=== PATIENT | male | born 1985 | race Caucasian/White ===

== ENCOUNTER 2017-07-22 11:19 | Emergency (ER) | payer OTHER ==
[~2017-07-22] VITALS: Ht 180.3 cm; Wt 87.1 kg
--- NOTE | 2017-07-22 12:13 | ED GI/GU/ABDOMINAL COMPLAINT ---
History of Present Illness General Chief Complaint: Nausea, Vomiting, Diarrhea Stated Complaint: BIBA N/V Source: patient, family Exam Limitations: no limitations Vital Signs & Intake/Output Vital Signs & Intake/Output ED Intake and Output 07/23 0000 07/22 1200 Intake Total Output Total Balance Patient 192 lb Weight Weight Reported by Patient Measurement Method Allergies Coded Allergies: NO KNOWN ALLERGIES (11/28/12) Reconcile Medications Hydroxyzine HCl (hydrOXYzine HCl) 10 MG TABLET 1 TAB PO DAILY PRN ANXIETY ( Reported) Melatonin 5 MG TABLET 1 TAB PO QPM SLEEP (Reported) Methadone HCl (Methadose) 10 MG/ML ORAL.CONC 120 MG PO DAILY MENTAL HEALTH ( Reported) Multiple Vitamin (Multivitamins) 1 EACH TABLET 1 TAB PO DAILY SUPPLEMENT ( Reported) Omeprazole 40 MG CAPSULE.DR 1 CAP PO DAILY GI (Reported) Ondansetron (Zofran Odt) 4 MG TAB.RAPDIS 1 TAB SL TID PRN nausea Polyethylene Glycol 3350 17 GRAM/DOSE POWDER 17 GM PO QHS GI (Reported) Sodium Fluoride (Denta 5000 Plus) 1.1 % CREAM..G. 1 TRENT PO QHS TEETH ( Reported) Triage Note: 32M BIBA FOR N/V SINCE THIS AM. ARRIVES LETHARGIC AND MOANING. SIG OTHER STATES HE WAS RECENTLY WORKED UP FOR A FATTY LIVER. HAS NOT GOTTEN HIS DOSE OF METHADONE TODAY. 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 AFEBRILE Triage Nurses Notes Reviewed? yes Onset: Abrupt Duration: hour(s): Timing: multiple episodes today Quality/Severity: moderate Location: generalized abdomen HPI: 32-year-old male with history of fatty liver disease presents to emergency department complaining of abrupt onset generalized abdominal pain beginning this morning when he woke up. Patient also with bilious vomiting total episodes this morning. Pain was described as severe, burning, patient requests his called 911. Patient medicated with Zofran en route to the hospital. Patient is on daily methadone, did not take his methadone today as he was vomiting. Patient currently under evaluation for fatty liver, had ultrasound done which showed fatty liver as well as rising liver enzymes. The patient denies fevers, chills, diarrhea, constipation, urinary symptoms. (Nataly HURD,Thalia Serrano) Past History Travel History Traveled to [place] past 21 day No Medical History Any Pertinent Medical History? see below for history Neurological: NONE EENT: NONE Cardiovascular: NONE Respiratory: NONE Gastrointestinal: NONE Hepatic: NONE Renal: NONE Musculoskeletal: NONE Psychiatric: opioid dependence Endocrine: NONE Blood Disorders: NONE Tetanus Vaccine: 11/28/12 Surgical History Surgical History: non-contributory Psychosocial History What is your primary language Maori Tobacco Use: Refused to answer Family History Hx Contributory? No (Thalia Louie) Review of Systems Review of Systems Constitutional: Reports: no symptoms. EENTM: Reports: no symptoms. Respiratory: Reports: no symptoms. Cardiovascular: Reports: no symptoms. GI: Reports: see HPI. Genitourinary: Reports: no symptoms. Musculoskeletal: Reports: no symptoms. Skin: Reports: no symptoms. Neurological/Psychological: Reports: no symptoms. Hematologic/Endocrine: Reports: no symptoms. Immunologic/Allergic: Reports: no symptoms. All Other Systems: Reviewed and Negative (Thalai Louie) Physical Exam Physical Exam General Appearance: well developed/nourished, alert, awake, mild distress Head: atraumatic, normal appearance Eyes: Bilateral: normal appearance. Ears, Nose, Throat, Mouth: hearing grossly normal Neck: normal inspection, supple, full range of motion Respiratory: normal breath sounds, no respiratory distress, lungs clear Cardiovascular: regular rate/rhythm Gastrointestinal: mild abdominal distention, tenderness with gaurding through out abdominal exam, no organomegaly Back: normal inspection, normal range of motion Extremities: normal range of motion Neurologic/Psych: awake, alert, oriented x 3 Skin: intact, normal color, warm/dry Core Measures ACS in differential dx? No Sepsis Present: No Sepsis Focused Exam Completed? No (Thalia Louie) Progress Differential Diagnosis: appendicitis, biliary colic, bowel obstruction, colon cancer, cholecystitis, diverticulitis, gastritis, hepatitis, hernia, inflamm bowel dis, pancreatitis, peptic ulcer, PUD/GERD, perforated viscous, SBO Plan of Care: Orders Procedure Date/time Status LACTIC ACID 07/22 1434 Active LIPASE 07/22 1134 Complete LACTIC ACID 07/22 1134 Complete COMPREHENSIVE METABOLIC PANEL 07/22 1134 Complete CBC WITHOUT DIFFERENTIAL 07/22 1134 Complete AMYLASE 07/22 1134 Complete Laboratory Tests 07/22/17 1202: Anion Gap 19 H, Estimated GFR > 60, BUN/Creatinine Ratio 24.4, Glucose 125 H, Lactic Acid 2.5 H, Calcium 9.9, Total Bilirubin 0.3, AST 155 H, ALT 312 H, Alkaline Phosphatase 87, Total Protein 7.9, Albumin 5.0, Globulin 2.9, Albumin/ Globulin Ratio 1.7, Amylase 74, Lipase 424 H, CBC w Diff NO MAN DIFF REQ, RBC 6.10, MCV 79.6 L, MCH 25.8 L, RDW 14.4, MPV 9.5, Gran % 87.7 H, Lymphocytes % 8.1 L, Monocytes % 3.1, Eosinophils % 0.5, Basophils % 0.6, Absolute Granulocytes 10.0 H, Absolute Lymphocytes 0.9 L, Absolute Monocytes 0.3, Absolute Eosinophils 0.1, Absolute Basophils 0.1, PUBS MCHC 32.[address] scan reveals fatty liver without other acute abnormality. Patient's labs show elevated liver enzymes, no acute change compared to prior studies. Patient feels improved abdominal pain following IV medications here in the emergency department. He appears comfortable now, no acute distress, sitting comfortably in bed. Patient is tolerating PO area and patient given a referral for a veterinarian epidemiologist to follow-up with regarding his fatty liver. The patient agrees with the plan of care. The patient was discussed with Dr. Marrufo who agrees with this plan. Diagnostic Imaging: Viewed by Me: CT Scan. Discussed w/RAD: CT Scan. Radiology Impression: PATIENT: VANGIE HUGHES PRESENT AGE: 32 PATIENT ACCOUNT NO: [id number] : 85 LOCATION: [facility] ORDERING PHYSICIAN: Thalia HURD SERVICE DATE: 07/22/17 EXAM TYPE: CAT - CT ABD & PELVIS W IV CONTRAST EXAMINATION: CT ABDOMEN AND PELVIS WITH CONTRAST CLINICAL INFORMATION: 32-year-old male presented with severe generalized abdominal pain, nausea and vomiting. History of fatty liver. COMPARISON: Abdominal ultrasound done on 06/13/2017, CT of the chest, abdomen, and pelvis done on 03/15/2017 (at [facility]), and remote CT of the abdomen and pelvis done on 09/12/2011. TECHNIQUE: Multidetector volumetric imaging was performed of the abdomen and pelvis following IV administration of 90 mL of Optiray 320 intravenous contrast. Sagittal and coronal reformatted images were obtained on the technologist's workstation. DLP: 546.61 mGy-cm FINDINGS: LUNG BASES: The visualized lung bases are unremarkable. LIVER, GALLBLADDER, AND BILIARY TREE: Diffuse hepatic steatosis is present without any superimposed discrete focal abnormalities. The portal, hepatic veins are patent. The gallbladder is unremarkable with no evidence of radiopaque gallstones, gallbladder wall thickening, or obvious pericholecystic inflammatory changes. PANCREAS: Unremarkable. SPLEEN: Unremarkable. ADRENAL GLANDS: Unremarkable. KIDNEYS AND URETERS: The kidneys are normal in size, shape, and attenuation. No hydronephrosis, hydroureter, or calculi seen. No perinephric stranding. BLADDER: Unremarkable. GASTROINTESTINAL TRACT: The small and large bowel are unremarkable. The appendix is not visualized. ABDOMINAL WALL: No significant hernia is appreciated. LYMPH NODES: Normal. VASCULAR: Unremarkable. PELVIC VISCERA: There is no pelvic mass present. There is no free fluid and/or free air present. OSSEOUS STRUCTURES: No suspicious lytic or sclerotic abnormalities. Mild degenerative spondylosis at L5-S1. IMPRESSION: Diffuse hepatic steatosis. Nonvisualized appendix. Mild degenerative spondylosis at L5-S1. DICTATED BY: Zachariah Corrales MD DATE/TIME DICTATED:07/22/171345 CURING FINISHER:STEVE DATE/TIME TRANSCRIBED:07/22/171345 CONFIDENTIAL, DO NOT COPY WITHOUT APPROPRIATE AUTHORIZATION. <Electronically signed in Other Vendor System> SIGNED BY: Zachariah Corrales MD 07/22/17 9821 Initial ED EKG: none (Nataly HURD,Thalia Serrano) Departure Departure Disposition: HOME OR SELF CARE Condition: Stable Clinical Impression Primary Impression: Abdominal pain Qualifiers: Abdominal location: generalized Qualified Code: R10.84 - Generalized abdominal pain Secondary Impressions: Fatty liver Nausea & vomiting Qualifiers: Vomiting type: unspecified Vomiting Intractability: non-intractable Qualified Code: R11.2 - Nausea with vomiting, unspecified Referrals: Greer Butterfield MD (PCP/Family) Additional Instructions: Follow-up with veterinarian epidemiologist as discussed regarding a fatty liver. Increase fluids as tolerated and then slowly advance your diet to bland foods. Return to the emergency Department with any worsening symptoms or other concerns. Please note that there might be incidental findings in your evaluation that are unrelated to the current emergency department visit. Please notify your primary care doctor about this emergency department visit in order to obtain and review all of the testing performed so that these incidental findings can be monitored as needed. If you had an x-ray performed, please understand that some fractures may not be seen on the initial set of x-rays. If your symptoms persist you might need a repeat set of x-rays to check for such a fracture. If you had a laceration evaluated, please understand that foreign bodies such as glass or wood may not be visible to the naked eye or on plain x-rays. If the wound becomes red, swollen, increasingly more painful or if there is any drainage from the wound, please have it reevaluated by a physician for the possibility of a retained foreign body. If you're unable to follow up as outlined in the discharge instructions please return to the emergency department. Thank you for choosing the [facility] Emergency Department for your care. It was a pleasure to serve you today. Departure Forms: Customer Survey General Discharge Information Prescriptions: Current Visit Scripts Ondansetron (Zofran Odt) 1 TAB SL TID PRN nausea #10 TAB (Nataly HURD,Thalia Serrano) PA/IRB COMPLIANCE COORDINATOR Co-Sign Statement Statement: ED Attending supervision documentation- [] I saw and evaluated the patient. I have also reviewed all the pertinent lab results and diagnostic results. I agree with the findings and the plan of care as documented in the PA's/IRB COMPLIANCE COORDINATOR's documentation. [X] I have reviewed the ED Record and agree with the PA's/IRB COMPLIANCE COORDINATOR's documentation. [] Additions or exceptions (if any) to the PAs/IRB COMPLIANCE COORDINATOR's note and plan are summarized below: [] (Niru DALY,Ronni Whitfield)
[2017-07-22 12:16] LABS: ABSOLUTE BASOPHIL COUNT 0.1 /CUMM (0.0-0.2); ABSOLUTE EOSINOPHIL COUNT 0.1 /CUMM (0.0-0.7); ABSOLUTE LYMPH COUNT 0.9 /CUMM (1.2-3.4); ABSOLUTE MONOCYTE COUNT 0.3 /CUMM (0.10-0.60); BASOPHIL % 0.6 % (0.0-2.0); EOSINOPHIL % 0.5 % (0-5); HEMATOCRIT 48.5 % (42-52); MEAN CORPUSCULAR HGB 25.8 PG (27.0-31.0); MEAN CORPUSCULAR HGB CONC 32.5 G/DL (33.0-37.0); MEAN CORPUSCULAR VOLUME 79.6 FL (80.0-94.0); MEAN PLATELET VOLUME 9.5 FL (7.4-10.4); PLATELET COUNT 202 /CUMM (130-400); RBC DISTRIBUTION WIDTH 14.4 % (11.5-14.5); WHITE BLOOD CELL COUNT 11.4 /CUMM (4.8-10.8)
[2017-07-22 12:30] LABS: GRANULOCYTE % 87.7 % (42.2-75.2)
[2017-07-22] MEDS ORDERED: OMEPRAZOLE40 M1 PO (13:41)
[2017-07-22] MEDS ORDERED: METHADOSE10 MG/1 ML PO (13:41)
[2017-07-22] MEDS ORDERED: POLYETHYLENE G255 GM PO (13:41)
[2017-07-22] MEDS ORDERED: MULTIVITAMINS1 EAC9 PO (13:42)
[2017-07-22] MEDS ORDERED: MELATONIN5 M7 PO (13:42)
[2017-07-22] MEDS ORDERED: DENTA 5000 PLUS51 GM PO (13:42)
[2017-07-22] MEDS ORDERED: HYDROXYZINE HCL10 M2 PO (13:42)
[2017-07-22 13:44] VITALS: BP 133/75
--- NOTE | 2017-07-22 14:05 | CT SCAN REPORT ---
EXAMINATION: CT ABDOMEN AND PELVIS WITH CONTRAST CLINICAL INFORMATION: 32-year-old male presented with severe generalized abdominal pain, nausea and vomiting. History of fatty liver. COMPARISON: Abdominal ultrasound done on 06/13/2017, CT of the chest, abdomen, and pelvis done on 03/15/2017 (at [facility]), and remote CT of the abdomen and pelvis done on 09/12/2011. TECHNIQUE: Multidetector volumetric imaging was performed of the abdomen and pelvis following IV administration of 90 mL of Optiray 320 intravenous contrast. Sagittal and coronal reformatted images were obtained on the technologist's workstation. DLP: 546.61 mGy-cm FINDINGS: LUNG BASES: The visualized lung bases are unremarkable. LIVER, GALLBLADDER, AND BILIARY TREE: Diffuse hepatic steatosis is present without any superimposed discrete focal abnormalities. The portal, hepatic veins are patent. The gallbladder is unremarkable with no evidence of radiopaque gallstones, gallbladder wall thickening, or obvious pericholecystic inflammatory changes. PANCREAS: Unremarkable. SPLEEN: Unremarkable. ADRENAL GLANDS: Unremarkable. KIDNEYS AND URETERS: The kidneys are normal in size, shape, and attenuation. No hydronephrosis, hydroureter, or calculi seen. No perinephric stranding. BLADDER: Unremarkable. GASTROINTESTINAL TRACT: The small and large bowel are unremarkable. The appendix is not visualized. ABDOMINAL WALL: No significant hernia is appreciated. LYMPH NODES: Normal. VASCULAR: Unremarkable. PELVIC VISCERA: There is no pelvic mass present. There is no free fluid and/or free air present. OSSEOUS STRUCTURES: No suspicious lytic or sclerotic abnormalities. Mild degenerative spondylosis at L5-S1. IMPRESSION: Diffuse hepatic steatosis. Nonvisualized appendix. Mild degenerative spondylosis at L5-S1.
[2017-07-22] MEDS ORDERED: ZOFRAN ODT4 M1 SL (14:35)
== END 2017-07-22 14:45 ==
LOC: ERH 11:19
PROVIDERS: Physician Assistant
DX: K76.0 Fatty (change of) liver, not elsewhere classified (principal)
CPT/HCPCS: 74177; 96374; J2765